=== PATIENT | female | born 1980 | race Caucasian/White ===

== ENCOUNTER 2017-11-09 10:30 | Emergency (ER) | payer OTHER, SELFPAY ==
[2017-11-09 10:39] VITALS: BP 135/80; PULSE 98; RESP 16; O2SAT 100; BMI 28.8
--- NOTE | 2017-11-09 10:42 | CM.MNRNOTE ---
Hx sjorgrens disease and was told if vision changes that she needed to be seen immediately
--- NOTE | 2017-11-09 11:01 | ED_ITS ---
HPI - Eye Problem General Chief complaint: Eye Problems Stated complaint: can't see all of sudden Time Seen by Provider: 11/09/17 10:44 Source: patient Mode of arrival: ambulatory Limitations: no limitations History of Present Illness HPI Narrative: 37-year-old female with a history of Sjogren's syndrome here for evaluation of bilateral blurry vision. Patient states that this morning she drove to work and after she park in the parking lot she looked in the review mere and noticed that her vision was blurry. She described it as being both sides however left side seem to be worse than the right. No pain. She does wear glasses and was wearing her glasses at the time. She states she walked into work and when she was sitting at her computer she had a very difficult time reading the letters that were on the computer. She states that her symptoms have improved somewhat since then however she is not back to normal. She does have a slight pressure on her right temporal region. Her only eye procedure was a inferior orbital rim from a blowout fracture repair back in 2004. No history of glaucoma. No other neurologic symptoms. Related Data Home Medications Medication Instructions Recorded Confirmed buprenorphine-naloxone [Suboxone] 1 juan SUBLINGUAL #0 03/16/17 09/14/17 venlafaxine [Effexor XR] 300 mg #0 03/16/17 09/14/17 cetirizine 10 mg tablet 10 mg PO DAILY 09/14/17 09/14/17 Previous Rx's Medication Instructions Recorded valacyclovir [Valtrex] 1,000 mg PO TID #21 tab 03/16/17 metronidazole 500 mg tablet 500 mg PO BID #14 tab 09/14/17 pxvmjszuxl-lrjdqnvdkorks-cgzj 1 cap PO Q4H PRN #14 cap 11/09/17 [Fioricet] Allergies Allergy/AdvReac Type Severity Reaction Status Date / Time ceftriaxone [From ROCEPHIN] Allergy Unknown Verified 11/09/17 10:39 latex Allergy rash Verified 11/09/17 10:39 Review of Systems Constitutional Denies chills, Denies fever(s) and Denies malaise Eyes Reports blurry vision, Reports change in vision, Denies diplopia, Denies irritation, Denies eye pain, Denies seeing flashes, Denies photophobia, Denies spots in vision and Denies tunnel vision Comments: Bilateral blurry vision ENT Ears, Nose, Mouth, and Throat: Denies dizziness Cardiovascular Denies chest pain, Denies syncope and Denies dyspnea Respiratory Denies dyspnea Gastrointestinal Gastrointestinal: Denies abdominal pain, Denies nausea and Denies vomiting Musculoskeletal Denies myalgias, Denies arthralgias and Denies numbness Integumentary/Breasts Denies lesions and Denies rash Neurologic Denies behavioral changes, Denies dizziness, Denies syncope, Denies focal weakness, Denies numbness and Denies other visual disturbances Psychiatric Denies behavioral changes [facility] Medical History Chronic pain (Acute) History of hysterectomy (Acute) Sjogrens syndrome (Acute) Social History Smoking Status: Current every day smoker Exam Initial Vital Signs Initial Vital Signs: Vital Signs Pulse Rate 98 H 11/09/17 10:39 Respiratory Rate 16 11/09/17 10:39 Blood Pressure 135/80 H 11/09/17 10:39 Pulse Oximetry 100 11/09/17 10:39 Const General: cooperative, healthy appearing, comfortable, well developed, well groomed and No acute distress Orientation: alert, awake and oriented x3 HENMT Head: normal to inspection, normocephalic and atraumatic Ears: TM's normal bilaterally Nose: external nose normal Face and sinus: normal facial exam Mouth: oral mucosae normal Teeth and gingiva: dentition normal Eyes Alignment and Position: alignment normal Periorbital: periorbital findings normal Eyelids: eyelids normal Pupils: PERRL EOM: EOM intact bilaterally Direct ophthalmoscopy: normal light reflex and photophobia present Neck Neck: normal visual inspection and full ROM Resp Effort & Inspection: normal respiratory effort Auscultation: clear to auscultation bilaterally Cardio Rate: regular rate Rhythm: regular rhythm Skin Lesions: no lesions Rashes: no rashes Neuro General: alert, awake and oriented x3 Cranial Nerves: CN's II-XI intact bilaterally Cognition: normal cognition Speech: speech normal Motor: muscle tone normal throughout Sensory Exam: no sensory deficits noted Extrem General: normal to inspection Psych Appearance: grossly normal and well kempt Course Orders Ordered: ED Orders 11/09/17 11:23 CT head/brain wo con Stat Discontinued Medications Acetaminophen/Butalbital/Caffeine (Fioricet) 1 each PO NOW ONE Stop: 11/09/17 11:21 Last Admin: 11/09/17 11:32 Dose: 1 each Vital Signs - 8 hr 11/09/17 10:39 11/09/17 11:46 Pulse Rate 98 H 70 Respiratory Rate 16 16 Blood Pressure 135/80 H Blood Pressure [Right Arm] 107/62 Pulse Oximetry 100 98 MDM - Eye Problem Imaging Data CT scan - head: Radiologist's impression: [address] [address] [address] Scan Report Signed Patient: Zoe Schreiber [facility]#: [id number] : 1980Acct:[id number] Age/Sex: 37 / FDate of Service: 11/09/17 Loc: ED Accession Number: [id number] Procedure: CT head/brain wo con Ordering Provider: Jovanny Power D.O. PROCEDURE: CT HEAD/BRAIN WO CON INDICATIONS: headache TECHNIQUE: Noncontrast 4.5 mm thick angled axial sections acquired from the foramen magnum to the vertex, with coronal and sagittal reformats. For radiation dose reduction, the following was used: automated exposure control, adjustment of mA and/or kV according to patient size. COMPARISON: [facility], CT, ORBITS W/O CONTRAST, 06/30/2009, 13:29. FINDINGS: Image quality: Excellent. CSF spaces: Basal cisterns are patent. No extra-axial fluid collections. Ventricles are normal in size and shape. Brain: No midline shift. No intracranial masses or hemorrhage. Hull-white matter interface is normal. Skull and face: Calvarium and visualized facial bones are intact, without suspicious lesions. Sinuses: Visualized sinuses and mastoids are clear. IMPRESSION: No acute intracranial disease process. Dictated by: Jessica Martinez MD, PhD on 11/09/2017 at 11:31 Approved by: Jessica Martinez MD, PhD on 11/09/2017 at 11:50 [facility] Narrative Medical decision making narrative: Visual acuity noted Interocular pressure right eye 17. Interocular pressure left eye 17. Head CT is unremarkable. Discussed the case with Dr. burton with Ophthalmology who states that the patient's symptoms are very consistent with an ocular migraine. Patient does not have a history of migraines however is having a right-sided headache. Has a normal neurologic exam otherwise. Her visual acuity here in the ER is fairly unremarkable. She was given a Fioricet here for her headache. Will send home with a prescription for this. She was instructed she needed to contact her primary doctor and also her eye doctor. She was given return precautions. She expressed understanding and agreement with plan. Discharge Plan Departure Patient Disposition: Home Clinical Impression: Blurred vision, bilateral Instructions: Migraine -- Adult Activity Restrictions/Additional Instructions: After discussion with our on-call emergency medicine nurse practitioner she feels that year symptoms today are consistent with an ocular migraine. I recommend that you contact your eye doctor and also your primary care doctor for a follow-up. Return to the emergency department for any new or worsening symptoms. Prescriptions: New yfdgoarrwd-rucocweifizeb-qtzh [Fioricet] 50-300-40 mg capsule 1 cap PO Q4H PRN (Reason: pain) Qty: 14 RF: 0 No Action cetirizine [Zyrtec] 10 mg tablet 10 mg PO DAILY RF: 0 metronidazole 500 mg tablet 500 mg PO BID Qty: 14 RF: 0 venlafaxine [Effexor XR] 150 MG capsule,extended release 24hr 300 mg Qty: 0 RF: 0 buprenorphine-naloxone [Suboxone] 8 MG/2 MG film 1 juan Sublingual Qty: 0 RF: 0 valacyclovir [Valtrex] 1,000 MG tablet 1,000 mg PO TID Qty: 21 RF: 2 Stand Alone Forms: Work/School Restrictions
--- NOTE | 2017-11-09 11:14 | PC.NURSE ---
Call to opto for consult. MD nai la
--- NOTE | 2017-11-09 11:23 | DI.CT.S_ITS ---
PROCEDURE: CT HEAD/BRAIN WO CON INDICATIONS: headache TECHNIQUE: Noncontrast 4.5 mm thick angled axial sections acquired from the foramen magnum to the vertex, with coronal and sagittal reformats. For radiation dose reduction, the following was used: automated exposure control, adjustment of mA and/or kV according to patient size. COMPARISON: [facility], CT, ORBITS W/O CONTRAST, 06/30/2009, 13:29. FINDINGS: Image quality: Excellent. CSF spaces: Basal cisterns are patent. No extra-axial fluid collections. Ventricles are normal in size and shape. Brain: No midline shift. No intracranial masses or hemorrhage. Hull-white matter interface is normal. Skull and face: Calvarium and visualized facial bones are intact, without suspicious lesions. Sinuses: Visualized sinuses and mastoids are clear. IMPRESSION: No acute intracranial disease process. Dictated by: Jessica Martinez MD, PhD on 11/09/2017 at 11:31 Approved by: Jessica Martinez MD, PhD on 11/09/2017 at 11:50
[2017-11-09] MEDS: BUTALB/APAP/CAFFEINE 50/325/40 TABLET 1 EACH PO (11:32)
[2017-11-09 11:46] VITALS: BP 107/62; PULSE 70; RESP 16; O2SAT 98
[2017-11-09 12:19] VITALS: BP 101/70; PULSE 82; RESP 16; O2SAT 98
== END 2017-11-09 12:20 | disposition home or self-care (01) ==
PROVIDERS: Emergency Provider Emergency Medicine
DX: H53.8 Other visual disturbances (principal)
CPT/HCPCS: 70450; 99283; 99284

== ENCOUNTER → 2018-05-07 09:48 | Outpatient (CLI) | payer OTHER, SELFPAY | PROVIDERS: Visit Provider Physician Assistant | DX: R68.89 Other general symptoms and signs (principal) | CPT/HCPCS: 87400 ==

== ENCOUNTER → 2019-03-08 12:52 | Outpatient (CLI) | payer OTHER, SELFPAY ==
[2019-03-08 13:42] LABS: Influenza A - CEPHEID Flu A NEGATIVE (NEGATIVE); Influenza B - CEPHEID Flu B NEGATIVE (NEGATIVE)
== END ==
PROVIDERS: Visit Provider Nurse Practitioner
DX: R68.89 Other general symptoms and signs (principal)
CPT/HCPCS: 87502